=== PATIENT | male | born 1995 | race African-American/Black ===

== ENCOUNTER → 2018-10-26 16:08 | Outpatient (CLI) | payer OTHER, SELFPAY ==
--- NOTE | 2018-10-26 | DI.ECHO.S_ITS ---
[facility]---------+ [facility] +---------+ : : [address] : : : [place], [place] : : : : [id number] : : : : Phone: [phone]+ Echocardiogram Report + + :Name: CORAL MATUTE Study Date: 10/26/2018 Height: 72 in : :[facility] Exam Location: [facility] Weight: 266 lb : : Gender: Male BSA: 2.4 m2 : :: 1995 Age: 23 yrs BP: 100/60 mmHg: :Reason For Study: PALPITATIONS : : Performed By: Jorge Asher : :Referring: STEVEN WOOD : + + Interpretation Summary 1) Normal left ventricular thickness, size, wall motion, and systolic function (EF 55-60%). 2) The right ventricle is mildly dilated with normal function. 3) No significant valvular abnormalities. 4) No prior Echo available for comparison. Procedure: A two-dimensional transthoracic echocardiogram with color flow and Doppler was performed. The study quality was technically good. There is no prior echocardiogram noted for this patient. The patient was in normal sinus rhythm during the exam. Left Ventricle: The left ventricle is normal in size. There is normal left ventricular wall thickness. The ejection fraction is estimated to be 55-60%. There are no focal wall motion abnormalities. Diastolic parameters suggest a relaxation abnormality of the left ventricle, consistent with probable normal filling pressures. Right Ventricle: The right ventricle is mildly dilated. The right ventricular systolic function is normal. Atria: Both atria are normal in size. The interatrial septum is intact with no evidence for an atrial septal defect. Mitral Valve: The mitral valve is normal in structure and function. There is trace mitral regurgitation. Aortic Valve: The aortic valve is trileaflet. The aortic valve opens well. There is no aortic valve stenosis. No aortic regurgitation is present. Tricuspid Valve: The tricuspid valve is normal in structure and function. There is trace tricuspid regurgitation. The right ventricular systolic pressure is estimated to be at least 15 mmHg based on an estimated right atrial pressure of 3 mm Hg. Pulmonic Valve: The pulmonic valve is not well seen, but is grossly normal. There is trace pulmonic regurgitation. Great Vessels: The aortic root is normal size. The dimensions of the ascending aorta are normal. The pulmonary artery is normal size. The IVC is of normal diameter and collapses greater than 50% with a sniff. This suggests a low right atrial pressure of 3 mm Hg. Pericardium/ Pleura There is no pericardial effusion. There is no pleural effusion. MMode/2D Measurements & Calculations LVIDd: 5.4 cm LVOT diam: 2.5 cm LVIDs: 3.9 cm Ao root diam: 3.2 cm FS: 28.5 % Aortic Jxn: 2.6 cm EPSS: 0.97 cm asc Aorta Diam: 3.1 cm IVSd: 0.93 cm Ao Arch Diam (Prox Trans): 2.6 cm LVPWd: 0.95 cm LV rudolph. diameter/BSA (cm/m^2): 2.2 LV sys. diameter/BSA (cm/m^2): 1.6 LA dimension: 3.4 cm RA long axis: 5.2 cm LA A2 area: 26.1 cm2 RA area: 21.0 cm2 LA A4 area: 23.7 cm2 RA vol: 72.4 ml LA length (vol): 6.6 cm RA : 30.1 ml/m2 LA vol: 79.4 ml IVC diam: 1.8 cm LA vol index: 33.0 ml/m2 RVD1 (basal): 4.7 cm RVD2 (mid): 4.4 cm Doppler Measurements & Calculations Ao V2 max: 122.5 cm/sec LVOT Max Karthikeyan: 86.3 cm/sec Ao V2 mean: 87.3 cm/sec LV V1 max P.0 mmHg Ao max P.0 mmHg LV V1 VTI: 19.1 cm Ao mean P.3 mmHg SURESH(I,D): 3.6 cm2 Ao V2 VTI: 26.5 cm SURESH(V,D): 3.5 cm2 sev ratio: 0.72 SURESH indexed to BSA (cm^2/m^2): 1.5 MV E max karthikeyan: 80.9 cm/sec TR max karthikeyan: 175.7 cm/sec MV A max karthikeyan: 34.7 cm/sec TR max P.4 mmHg MV E/A: 2.3 PA V2 max: 66.3 cm/sec Med Peak E' Karthikeyan: 11.4 cm/sec PA V2 mean: 49.1 cm/sec E/E' med: 7.1 PA mean P.1 mmHg Lat Peak E' Karthikeyan: 16.7 cm/sec PA pr(Accel): 26.6 mmHg E/E' lat: 4.8 PA Accel Time: 0.13 sec E/e' average: 6.0 MV dec time: 0.21 sec SV(LVOT): 95.6 ml Reading Physician:05:42 PM
== END ==
PROVIDERS: Visit Provider Physician Assistant
DX: R00.2 Palpitations (principal)
CPT/HCPCS: 93306